=== PATIENT | female | born 1950 | race Native Hawaiian/Other Pacific Islander ===

== ENCOUNTER 2017-08-22 12:04 | Day surgery (SDC) | payer MEDICARE, OTHER ==
[2017-08-22 08:16] VITALS: BMI 23.4
[2017-08-22] MEDS ORDERED: Propofol 10 mg/ml Inj (20 ML) ONE (15:55)
[2017-08-22] MEDS ORDERED: Midazolam 2 MG/2 ML VIAL ONE (15:55)
[2017-08-22] MEDS ORDERED: ceFAZolin IV 1 gm in Dextrose 0 GM/0 ML BAG IVPB ONE (16:14)
[2017-08-22] MEDS ORDERED: ceFAZolin IV 2 gm in Dextrose 0 GM/0 ML BAG IVPB ONE (16:14)
[2017-08-22] MEDS ORDERED: Methylene Blue 10 mg/mL(10ml) IV ONE (16:14)
[2017-08-22] MEDS ORDERED: Bacitracin 50,000 UNIT in Sodium Chloride 0.9% Irrig 1,000 ML IR SCH (16:15)
[2017-08-22] MEDS ORDERED: Clindamycin 2% Vaginal Cream(40 gm) ONE ×2 (16:15→16:56)
[2017-08-22] MEDS ORDERED: Bupivacaine/Epi 0.25%-1:200,000 10 ml PF inj IJ ONE (16:17)
[2017-08-22] MEDS ORDERED: Lactated Ringer's 1,000 ML IV ONE ×2 (16:25→18:15)
[2017-08-22] MEDS ORDERED: Clindamycin 600mg/50ml NS 600 MG/50 ML BAG IVPB ONE (16:25)
[2017-08-22] MEDS ORDERED: Succinylcholine Chloride 20 mg/ml Syr (5 ml) IV ONE (16:28)
--- NOTE | 2017-08-22 17:16 | PCM.SURG1 ---
Surgeon's Initial Post Op Note - Surgeon's Notes Surgeon: lisette moreno md Web Database Developer: dwight RANDOLPH Type of Anesthesia: General Endo, Local Pre-Operative Diagnosis: Urinary incontinence stress. Hematuria Operative Findings: prior sling procedure with mesh present. atrophic vaginal changes. normal bladder ureters and urethra anatomy Post-Operative Diagnosis: Urinary incontinence stress. Hematuria Operation Performed: Insertion of midurethral sling. removal of old sling. Diagnostic cystoscopy Specimen/Specimens Removed: old vaginal mesh Estimated Blood Loss: EBL {In ML}: 10 Blood Products Given: N/A Drains Used: No Drains Post-Op Condition: Good Date of Surgery/Procedure: 08/22/17 Time of Surgery/Procedure: 17:16
[2017-08-22] MEDS ORDERED: Oxycodone/Acetaminophen 5/325 mg Tab PO PRN (17:19)
[2017-08-22] MEDS ORDERED: Morphine 4 MG/ML VIAL IVP PRN (17:19)
--- NOTE | 2017-08-22 17:19 | PCM.OP ---
Operative Report - Operative Report Date of Surgery/Procedure: 08/22/17 Time of Surgery/Procedure: 17:16 Surgeon: Precious moreno md [employer] Cutter Hand: dwight Colon Anesthesia/Sedation: Gen with ET tube Pre-Operative Diagnosis: Stress urinary incontinence. Hematuria microscopic Post-Operative Diagnosis: same Indication for Surgery: Recurent stress urinary incontinece. Microscopic hematuria Operative Findings: Normal bladder anatomy as per cystoscopy at the end of procedure. Old mesh sling in situ. No mesh erosion noted. Procedure/Operation Description: Insertion of midurethral sling. removal of old sling. cystoscopy. Detailed operative report. This is a 66 years old female with long-standing and worsening symptoms of urinary incontinence. The patient reported these symptoms to be debilitating and adversely affecting her quality of life. The patient is reporting leakage of urine upon any exertion, coughing sneezing as well as some urgency incontinence. For several years these symptoms of severe leakage of urine on exertion have worsened. A complete work up in the office which included an ultrasound and urodynamic study revealed a picture of mixed urinary incontinence with a strong stress urinary incontinence component. The patient had a long period of failed conservative management which included weight loss, Kegel exercises. The patient underwent a robotic hysterectomy and sling procedure over 5 years ago. She had great results following her surgery and over time gradually worsened enough that she is now with recurrent JUSTIN. In addition, that patient had chronic micro hematuria for which a cystoscopy and inspection under anesthesia is warranted. Following the complete workup, a long discussion of surgical vs other conservative was completed. A decision was made to proceed with a mid-urethral sling procedure using synthetic mesh material and removal of old sling mesh. After a detailed discussion about the pros and cons of using polypropylene midurethral sling, all benefits and risks were reviewed including but not limited to the risk of infection, mesh erosion / extrusion, chronic pain and dyspareunia. In addition, the FDA warning about mesh utilization for prolapse and incontinence surgery was reviewed in details, and specific written consent was obtained. The patient elected to proceed with a midurethral sling today fully understanding the risk associated with utilizing mesh material. Other alternatives were also offered to the patient, including a biological graft such as porcine sling as well as the patient owns fascia as sling material, she elected to proceed with a mesh sling despite associated risks. After proper consent was obtained from the patient, patient was taken to the operating room where general anesthesia was obtained without difficulty. She was placed in the dorsal lithotomy position, her legs were placed in adjustable Vito stirrups, and careful attention was placed not to over-flex or over-rotate the lower extremities. العلي catheter was inserted under sterile conditions. She was prepped and draped appropriately for a mid- urethral sling procedure. Examination revealed a widened introitus with a second degree cystourethrocele and prolapse of the vaginal wall following hysterectomy. After appropriate prep, the patient was draped in the usual manner for major vaginal surgery. The anterior vaginal wall over the midurethral area was grasped with a pair of Allis clamps and tenting the vaginal wall from the underlying urethra. Local anesthetic solution of 0.25% Marcaine with epinephrine diluted 1:1 was used to infiltrate the periurethral space. A total of 20 cc was utilized. Using a scalpel, a midurethral vertical incision about 1 cm was made through the vaginal epithelium and periurethral fascia. Meticulous dissection of the older mesh and scar tissue allowed for the removal of as much old graft mesh material as possible. Careful lateral sharp dissection using Metzenbaum scissors towards the inferior pubic ramus to eventually allow the sling graft to lie flat against the urethra. Next, the sling mesh was loaded onto the needle tip. The needle tip was inserted through one side of the incision towards the medial edge of the obturator foramen approximately 45 degrees of the horizontal plane. Using an arching helical motion, the needle tip was advanced through pushing the obturator internus muscle. The needle was released from the graft and loaded on the other side of the sling ready for deployment to the contralateral side. Ensuring the sling is flat on the urethra and not twisted, the needle was advanced in an arching motion towards the obturator internus muscle on the opposite site. Attention was readdressed to allow a flat placement with tension- free sling on the midurethra. Following saline irrigation and good hemostasis was noted, the vaginal mucosa was closed with 2-0 Vicryl in a locking fashion. At this time, the العلي catheter was removed and a diagnostic cystoscopy was performed. The bladder was distended with about 300 cc of fluid. Both ureteral orifices were noted to be fluxing urine normally. The trigone was normal. There were no noted abnormalities with any evidence of any compromise of the lower urinary tract with mesh material, sutures or instruments. The patient emerged from general anesthesia without any difficulty. The patient was taken to the recovery room in stable condition. Prior to incision patient received prophylactic antibiotics , prior to closure sponge lap and needle counts are correct x2. Estimated Blood Loss: 10 Blood Replaced: none Sponge/Instrument Count: correct times two Drains: none Complications: none Specimen: old mesh fregements Discharge & Condition: discharge with criteria met
[2017-08-22] MEDS ORDERED: Sodium Chloride 0.9% 1,000 ML IV SCH (17:30)
[2017-08-22] MEDS ORDERED: HYDROmorphone 0.5 mg/0.5 ml ISec IVP PRN (17:31)
[2017-08-22 17:56] VITALS: O2SAT 100
[2017-08-22 18:23] VITALS: RESP 15
[2017-08-22 19:03] VITALS: BP 129/66; PULSE 66
[2017-08-22 20:56] VITALS: TEMP 98.1
== END 2017-08-22 20:05 | disposition home or self-care (01) ==
LOC: C.SDS 12:04 → C.9P 17:19 → C.4M 17:19 → C.SDS 20:05
PROVIDERS: ATTEND Obstetrics & Gynecology
DX: N81.10 Cystocele, unspecified (principal); N39.3 Stress incontinence (female) (male); R31.29 Other microscopic hematuria
CPT/HCPCS: 57287; 88300; C1771; C2615; J2250; J2405; J2704; J3010; J7120